=== PATIENT | female | born 1945 | race Caucasian/White ===

== ENCOUNTER 2019-10-30 13:04 | Outpatient (CLI) | payer MEDICARE, SELFPAY ==
[2019-10-30 14:15] LABS: Hematocrit 42.7 % (37.0-47.0); Hemoglobin 14.5 g/dL (12.0-15.0); Mean Corpuscular Hemoglobin 28.9 pg (26-34); Mean Corpuscular Volume 85.2 fl (80-100); Mean Platelet Volume 10.1 fl (7.4-10.4); Platelet Count Result 244 k/mm3 (150-375); Red Blood Count 5.01 M/mm3 (4.2-5.4); Red Cell Distribution Width 12.7 % (11.5-14.5); White Blood Count 5.7 K/mm3 (4.5-10.0)
[2019-10-30 14:25] LABS: INR 0.9; Prothrombin Time 12.2 Seconds (11.1-14.7)
[2019-10-30 14:27] LABS: Anion Gap 6 mmol/L (8-16); Blood Urea Nitrogen 20 mg/dL (7-17); Calcium 9.2 mg/dL (8.4-10.2); Carbon Dioxide 26 mmol/L (22-30); Chloride 104 mmol/L (98-107); Estimated Glomerular Filt Rate > 60; Glucose 89 mg/dL (65-105); Potassium 3.7 mmol/L (3.4-5.0); Sodium 136 mmol/L (137-145)
== END 2019-10-30 13:05 | disposition home or self-care (01) ==
PROVIDERS: PCP Internal Medicine; Visit Provider Internal Medicine
DX: Q21.1 Atrial septal defect (principal); Z86.73 Personal history of transient ischemic attack (TIA), and cerebral infarction without residual deficits
CPT/HCPCS: 36415; 80048; 85027; 85610

== ENCOUNTER 2020-01-07 16:36 | Outpatient (CLI) | payer MEDICARE, SELFPAY ==
[2020-01-07 17:24] LABS: Add Urine Microscopic? YES; Appearance Urine Cloudy (Clear); Bacteria Urine 2+ /hpf; Bilirubin Urine Negative (Negative); Blood Urine 1+ (Negative); Color Urine Yellow (Yellow); Glucose Urine UA Negative (Negative); Ketones Urine Negative (Negative); Leukocyte Esterase Ur 3+ LEU/UL (Negative); Mucus Urine Rare /lpf; Nitrate Urine Positive (Negative); Protein Urine 2+ mg/dL (Negative); Specific Grav Ur 1.014 (1.001-1.035); Squamous Epithelial Cell Urine Many /hpf (Few); Urobilinogen Urine Negative mg/dL (<2.0); WBC Clumps Urine Present /HPF; WBC Urine >75 /hpf
== END 2020-01-07 16:37 | disposition home or self-care (01) ==
LOC: ANHLAB 16:46
PROVIDERS: PCP Internal Medicine
DX: R30.0 Dysuria (principal)
CPT/HCPCS: 81001; 87077; 87086; 87088; 87186

== ENCOUNTER 2020-01-20 14:14 | Outpatient (CLI) | payer MEDICARE, SELFPAY | END 2020-01-20 14:15 | disposition home or self-care (01) | PROVIDERS: PCP Internal Medicine | DX: R30.0 Dysuria (principal) | CPT/HCPCS: 87077; 87086; 87088; 87186 ==

== ENCOUNTER 2020-03-23 16:05 | Outpatient (CLI) | payer MEDICARE, SELFPAY | END 2020-03-23 16:06 | disposition home or self-care (01) | LOC: ANHLAB 16:09 | PROVIDERS: PCP Internal Medicine; Visit Provider Internal Medicine | DX: R74.8 Abnormal levels of other serum enzymes (principal) | CPT/HCPCS: 36415; 83915 ==

== ENCOUNTER 2020-05-11 15:40 | Emergency (ER) | payer OTHER, MEDICARE, SELFPAY ==
--- NOTE | ~2020-05-11 | XR_ITS ---
EXAMINATION: XR chest 2V DATE: 05/11/2020 16:41 INDICATION: Left chest and shoulder pain. TECHNIQUE: Frontal and lateral views of the chest were obtained. COMPARISON: Chest 2 views 04/11/2011 FINDINGS: The chest demonstrates clear lungs without pneumonia, pleural effusion, or pneumothorax. Th e heart size is normal. IMPRESSION: 1. No acute cardiopulmonary disease. Reviewed, dictated and finalized at location A. 

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
[2020-05-11 15:41] VITALS: BP 144/74; PULSE 95; RESP 20; TEMP 36.6; O2SAT 97
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
[2020-05-11] MEDS: ACETAMINOPHEN 500 MG TABLET 1000 MG PO (16:44)
== END 2020-05-11 17:34 | disposition home or self-care (01) ==
LOC: ANHED 16:55
PROVIDERS: Emergency Provider Emergency Medicine; PCP Internal Medicine
DX: S16.1XXA Strain of muscle, fascia and tendon at neck level, initial encounter (principal); Z79.82 Long term (current) use of aspirin; I10 Essential (primary) hypertension; M47.812 Spondylosis without myelopathy or radiculopathy, cervical region; V49.40XA Driver injured in collision with unspecified motor vehicles in traffic accident, initial encounter
CPT/HCPCS: 71046; 72125; 99284; A9270

== ENCOUNTER 2020-07-22 13:14 | Emergency (ER) | payer MEDICARE, SELFPAY ==
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
[2020-07-22 13:25] VITALS: BP 139/75; PULSE 83; RESP 16; TEMP 37.1; O2SAT 100
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
== END 2020-07-22 14:01 | disposition home or self-care (01) ==
PROVIDERS: Emergency Provider Nurse Practitioner; PCP Internal Medicine
DX: L03.116 Cellulitis of left lower limb (principal); E78.00 Pure hypercholesterolemia, unspecified; I10 Essential (primary) hypertension
CPT/HCPCS: 73630; 99213; G0463

== ENCOUNTER 2020-07-23 13:02 | Outpatient (CLI) | payer MEDICARE, SELFPAY ==
--- NOTE | ~2020-07-23 | US_ITS ---
EXAMINATION: US soft tissue LE LT DATE: 07/23/2020 13:47 INDICATION: Penetrating trauma at the dorsum of the left forefoot. Assess for abscess. TECHNIQUE: Multiple grayscale and Doppler ultrasound images of the region of concern at the medial si de of the dorsal aspect of the left forefoot were obtained. COMPARISON: None FINDINGS: There is a thin linear echogenic and shadowing foreign body in the subcutaneous tissues at the region of concern consistent with a splinter. The foreign body measures 1.5 cm in length and 1-2 mm maximal orthogonal dimensions. The foreign body is oriented transversely across the region of the distal fir st intermetatarsal space with small amount surrounding hypoechogenicity consistent with phlegmonous c hange without a discrete organized abscess. The medial tip of the foreign body is positioned 2-3 mm d eep to the skin surface where there appear to be a tiny skin defect likely representing the site of p enetration which is located dorsal to the head of the first metatarsal. The foreign body extends late rally into the soft tissues dorsal to the head of the second metatarsal where it lies 7 mm deep to th e skin surface. An indelible marker was used to delineate the course of the foreign body along the sk in surface with orthogonal cross axis indicating its proximal and distal extents. IMPRESSION: 1. 1.5 cm retained foreign body, likely splinter, in the dorsal subcutaneous tissues overlying the he ads of the left first and second metatarsals. Reviewed, dictated and finalized at location A. IMPRESSION: 1. 1.5 cm retained foreign body, likely splinter, in the dorsal subcutaneous ti ssues overlying the heads of the left first and second metatarsals.
== END 2020-07-23 13:03 | disposition home or self-care (01) ==
PROVIDERS: PCP Internal Medicine
DX: L02.612 Cutaneous abscess of left foot (principal)
CPT/HCPCS: 76882

== ENCOUNTER 2021-09-11 07:57 | Emergency (ER) | payer MEDICARE, OTHER, SELFPAY ==
--- NOTE | ~2021-09-11 | XR_ITS ---
EXAMINATION: XR tibia fibula LT 2V INDICATION: Left leg pain TECHNIQUE: Two views of the left tibia and fibula are obtained. COMPARISON: None available FINDINGS: Bone alignment is normal. There is no fracture. There is mild osteoarthritis of the. The so ft tissues are unremarkable. IMPRESSION: 1. No acute osseous abnormality. Reviewed, dictated and finalized at location A.
[2021-09-11 08:34] VITALS: BP 118/57; PULSE 79; RESP 16; TEMP 36.6; O2SAT 98
--- NOTE | 2021-09-11 08:34 | PC.NURSE ---
patient refused ice pack
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
[2021-09-11 09:45] VITALS: BP 119/58; PULSE 61; RESP 16; TEMP 36.9; O2SAT 98
== END 2021-09-11 09:47 | disposition home or self-care (01) ==
PROVIDERS: Emergency Provider Emergency Medicine; PCP Internal Medicine
DX: M79.662 Pain in left lower leg (principal); I10 Essential (primary) hypertension; E78.00 Pure hypercholesterolemia, unspecified
CPT/HCPCS: 73590; 99283